=== PATIENT | male | born 1990 | race Caucasian/White ===

== ENCOUNTER 2018-09-10 12:38 | Outpatient (RCR) | payer BC ==
[~2018-09-10 12:38] MED LIST: MEDS FOR DEPRESSION; SULF1TAB38 PO; [UNRECOGNIZED DRUG - OTHER]; [UNRECOGNIZED DRUG - OTHER]; [UNRECOGNIZED DRUG - REMARK]
== END 2018-10-07 15:01 | disposition home or self-care (01) ==
DX: R29.91 Unspecified symptoms and signs involving the musculoskeletal system (principal)

== ENCOUNTER → 2018-09-18 | Outpatient (CLI) | payer BC ==
--- NOTE | 2018-09-18 17:12 | Diagnostic Imaging Report ---
PROCEDURE: MRI right joint upper extremity without contrast. TECHNIQUE: Multiplanar, multisequence non contrast-enhanced MRI of the right upper extremity was accomplished. INDICATION: Weight-lifting injury 2 weeks ago with pain and weakness and decreased range of motion in the right shoulder. COMPARISON: None FINDINGS: There is a cortical defect with surrounding bone marrow edema at the posterior superior humeral head, consistent with a Hill-Sachs defect. This measures approximately 4 mm in width, and 2.5 cm in length. The alignment of the right shoulder otherwise appears normal. There are moderate to severe degenerative changes in the right acromioclavicular joint, greater than expected for age. There is a small right shoulder joint effusion. The infraspinatus tendon demonstrates mild low-grade undersurface fraying near the Hill-Sachs defect. No high-grade partial-thickness or full-thickness rotator cuff tear is seen. There is no muscular atrophy. The long head of the biceps tendon appears normal in course and signal. The glenoid labrum is suboptimally evaluated in the absence of intra-articular contrast. There is suspected irregularity at the inferior labrum, with possible tear at the anterior inferior glenohumeral ligament (image #10 series 5). No para-labral cyst is seen. The acromion has a curved undersurface without hooking. The coracoclavicular and coracoacromial ligaments appear intact. IMPRESSION: 1. Defect at the superior posterior humeral head consistent with a Hill-Sachs lesion. 2. No osseous Bankart injury is appreciated. Suspected tear at the inferior labrum and tear of the anterior aspect of the inferior glenohumeral ligament. 3. Low-grade fraying of the infraspinous tendon with no high-grade partial-thickness or full-thickness rotator cuff tear seen. 4. Degenerative changes of the right acromioclavicular joint, greater than expected for age. Dictated by: Dictated on workstation # [id number]
== END ==
LOC: RAD 15:47
PROVIDERS: ATTEND Family Medicine
DX: S49.91XA Unspecified injury of right shoulder and upper arm, initial encounter (principal); M19.011 Primary osteoarthritis, right shoulder; M75.81 Other shoulder lesions, right shoulder; M89.9 Disorder of bone, unspecified; X50.0XXA Overexertion from strenuous movement or load, initial encounter
CPT/HCPCS: 73221